=== PATIENT | female | born 1980 | race Native Hawaiian/Other Pacific Islander ===

== ENCOUNTER 2024-07-29 20:17 | Emergency (ER) | payer BC, SELFPAY ==
[2024-07-29 20:23] VITALS: BP 152/84; PULSE 82; RESP 20; TEMP 36.7; O2SAT 96; BMI 37.2
--- NOTE | 2024-07-29 20:33 | ED_ITS ---
HPI - General Adult General Chief complaint: Cough Stated complaint: Labored breathing, cough Time Seen by Provider: 07/29/24 20:23 History of Present Illness HPI narrative: This 44-year-old female comes in reporting 2 days of cough with feelings of some shortness of breath. She does not report any fevers or nasal congestion. She does not have sore throat. She does not report any body aches or pains. She states that she did have COVID about a month ago and these symptoms completely resolved. Related Data Previous Rx's ?Medication ?Instructions ?Recorded acetaminophen 300 mg-codeine 30 mg 1 tab PO Q6H PRN pain #15 tabs 07/29/24 tablet Allergies Allergy/AdvReac Type Severity Reaction Status Date / Time No Known Drug Allergies Allergy Verified 07/29/24 20:24 Review of Systems Status of ROS: Reports: 10 or more systems reviewed and unremarkable except as noted in History and below Narrative: Constitutional: No fevers, no weight gain or loss. Eyes: No discharge. No vision changes. HENT: No congestion, no sore throat, no ear pain. Cardiovascular: No chest pain, no palpitations. Respiratory: She reports cough with shortness of breath. Gastrointestinal: No abdominal pain, no vomiting, no diarrhea. Genitourinary: No dysuria, no hematuria. Musculoskeletal: Normal range of motion. Skin: No rashes, no pruritis. Neurological: No dizziness, weakness, sensory change, speech change. Endo/Heme/Allergies: No bruising or bleeding. No polydipsia. Pysch: no suicidality, no anxiety, no insomnia. All other systems reviewed and are negative. Exam Narrative: Exam Narrative: Constitutional: Well-developed, well-nourished, no acute distress. HEENT: Normocephalic, atraumatic. Neck: Normal range of motion. Nontender. Supple. Heart: Regular. No murmurs. Normal rate. Intact distal pulses. Lungs: Wheezes and rhonchi auscultated on the right lung. Abdomen: Normal bowel sounds. Nontender. No rebound tenderness. Genitalia: Deferred. Back: No midline tenderness. Normal range of motion. Extremities: Normal range of motion. No injury. Skin: Intact. No rash. Warm. No erythema or pallor. Neurologic: No altered sensation. No weakness. Alert and oriented. Psychiatric: No suicidality. No anxiety or depression. No insomnia. Nursing notes and vitals signs are reviewed. Const: Vital Signs, click to edit/add: Vital Signs - 24 hr 07/29/24 20:23 Temperature 98.0 F Pulse Rate [Right Pulse Oximeter] 82 Respiratory Rate 20 Blood Pressure [Ri ght Upper Arm] 152/84 H Pulse Oximetry 96 Oxygen Delivery Me thod Room Air Course Vital Signs Vital signs: Initial Vital Signs Temperature 98.0 F 07/29/24 20:23 Temperature Source Temporal Artery Scan 07/29/24 20:23 Pulse Rate 82 07/29/24 20:23 Respiratory Rate 20 07/29/24 20:23 Blood Pressure 152/84 H 07/29/24 20:23 Blood Pressure Mean 106 H 07/29/24 20:23 Blood Pressure Position Sitting 07/29/24 20:23 Pulse Oximetry 96 07/29/24 20:23 Oxygen Delivery Method Room Air 07/29/24 20:23 Vital Signs Temperature 98.0 F 07/29/24 20:23 Pulse Rate 82 07/29/24 20:23 Respiratory Rate 20 07/29/24 20:23 Blood Pressure 152/84 H 07/29/24 20:23 Pulse Oximetry 96 07/29/24 20:23 Oxygen Delivery Method Room Air 07/29/24 20:23 Temperature 98.0 F 07/29/24 20:23 Pulse Rate 82 07/29/24 20:23 Respiratory Rate 20 07/29/24 20:23 Blood Pressure 152/84 H 07/29/24 20:23 Pulse Oximetry 96 07/29/24 20:23 Oxygen Delivery Method Room Air 07/29/24 20:23 Medications Administered Medications: Generic Name Dose Route Start Last Admin Trade Name Freq PRN Reason Stop Dose Admin Dexamethasone 10 mg 07/29/24 20:33 07/29/24 20:41 Dexamethasone 10 Mg/Ml Inj PO 07/29/24 20:34 10 mg ONCE ONE Administration Medical Decision Making MDM Narrative Medical decision making narrative: This patient comes in with the persistent nonproductive cough and reports some shortness of breath. She actually is moving air quite well and has normal vital signs however there is some wheezes and rhonchi auscultated on the right side. She did receive an oral dose of dexamethasone 10 mg. This brought some improvement to her symptoms. Chest rate x-ray is also obtained and by my review there is no acute pulmonary findings. Radiology report is pending. The patient is okay to be discharged home and I did provide prescription for 6 tablets of Tylenol 3 here from the pharmacy as the [employer] machine is not functioning and tomorrow is a holiday. She received another [address] of prescriptions through her preferred pharmacy also. Discharge Plan Discharge Clinical Impression: Acute upper respiratory infection Patient Disposition: Home, Self-Care Condition: Stable Additional Instructions: Take medication as needed and indicated. Follow up with MD or return if worsening symptoms occur, especially if becoming more short of breath. Prescriptions: New acetaminophen-codeine 300-30 mg tablet 1 tab PO Q6H PRN (Reason: pain) Qty: 15 0RF Follow Up/Referrals: Provider,Not a Local [Primary Care Provider] - Stand Alone Forms: [employer] Info Instructions
--- NOTE | 2024-07-29 20:33 | CRLHL7_ITS ---
For Patients: As a result of the Cures Act, medical imaging exams and procedure reports are released immediately into your electronic medical record. You may view this report before your referring provider. If you have questions, please contact your health care provider. Indication: Cough Technique: Two views of the chest Comparison: None Findings/Impression: No acute cardiopulmonary process detected. Question nodule in the left lung versus overlapping bronchovascular structures measuring 7 millimeters, nonemergent outpatient CT recommended for further characterization. Dictated by Roberto Carlos Knott MD @ 07/29/2024 9:20:28 PM (Electronically Signed)
[2024-07-29] MEDS: dexAMETHasone 10 MG/ML inj PO (20:41)
[2024-07-29 21:36] VITALS: BP 135/74; PULSE 79; RESP 20; TEMP 36.7; O2SAT 96
[2024-07-29 21:37] VITALS: BP 135/74; PULSE 79; RESP 20; TEMP 36.7
== END 2024-07-29 21:39 | disposition home or self-care (01) ==
PROVIDERS: Emergency Provider Emergency Medicine Emergency Medical Services
DX: J06.9 Acute upper respiratory infection, unspecified (principal)
CPT/HCPCS: 71046; 99283; 99284; J1100

== ENCOUNTER 2024-11-09 19:57 | Emergency (ER) | payer BC, SELFPAY ==
[2024-11-09] VITALS (19 sets, daily range): BP systolic 139–181; BP diastolic 76–97; PULSE 49–62; RESP 13–29; O2SAT 95–100; BMI 38.6
--- OUTSIDE RECORDS SUMMARY | 2024-11-09 19:59 | XMS_ITS | Continuity of Care Document ---
Author Organization [facility] Address [address] [place] [address] Phone Care Team Providers Care Mobile Device Developer Name Role Phone Will MD DAO, Jong Unavailable Unavailabl e Advance Directives Directive Yes / No Effective Date File Name No Information Encounters Encounter Description Practice Location Reason(s) For Visit Diagnoses Date Provider Providers Copied on Encounter [facility], [address] [place] [address], [id number], [place] tel:[phone] [facility] No Information Will Jong. [address] [facility] [place], [place], [id number], [place]. tel:[phone] Family History Family Member Type Diagnosis Age At Onset No Information Payers Payer name Insurance type Covered democrat ID Authoriza tion(s) No Information Social History Type Description Quantity Date Captured Comments Alcohol Use Details Unknown Caffeine Use Details Unknown Tobacco Use Status No Information Smoking Status No Information Sex Female Chief Complaint And Reason For Visit No Information Reason For Referral Reason For Referral No Information Plan Of Treatment Date Type Action Status Goal Tobacco Use. Due on 023 due Goal Lipid panel. Due on 023 due Goal Review Allergy List. Due on due Goal Unhealthy drug use screening . Due on due Goal Medication Reconciliation. D ue on due Goal Hepatitis C screening. Due o n due Goal PHQ-9. Due on du e Goal Weight. Due on d ue Goal HPV. Due on due Goal Update Social History. Due o n due Goal Height. Due on d ue History Of Present Illness Encounter Date Complaint History Of Prese nt Illness No Information Functional Status Date Functional Assessmen t No Information Instructions Date Instruction Additional Infor mation No Information Assessments Type Assessment Date No Information Patient Care Teams Name Effective Dates (start - stop) Status Members No Information
--- OUTSIDE RECORDS SUMMARY | 2024-11-09 19:59 | XMS_ITS | Clinical Summary ---
Author Organization [facility] Address [address], [place] [address] Care Team Providers Care Lending Consultant Name Role Phone Self-Referral, Patient MD Primary Care Provider Source Comments You are receiving this document as you are listed as the primary care provider,follow-up provider, or the patient has been referred to you for consultation.This is in compliance with the Medicare and[facility] EHR Incentive Program,which states Providers who transition their patient to another setting of careor provider of care or refers their patient to another provider of care shouldprovide summary care record for each transition of care or referral. [facility] Allergies No known active allergies Medications ibuprofen (MOTRIN) 800 MG tablet Take 1 Tablet (800 mg) by mouth every 8 hours as needed for Pain. 30 Tablet 2 Active Additional Information Patient not taking.Reported on 11/08/2023 acetaminophen-c odeine (TYLENOL NO. 3) 300-30 MG tablet Take by mouth. 4 Active ALBUterol sulfate HFA 108 (90 Base) MCG/ACT inhaler Inhale 2 Puffs every 6 hours as needed. 1 Each 4 Active fluticasone propionate (FLONASE) 50 MCG/ACT nasal solution Place 1 [place] into both nostrils two times a day. 16 g 4 Active Active Problems Problem Noted Date Diagnosed Date Other specified spondylopathies, cervical region 08/13/2023 Social History Tobacco Use Types Packs/Day Years Used Date Smoking Tobacco: Never Passive Smoke Exposure: Never Smokeless Tobacco: Current Chew Tobacco Cessation:Ready to Q uit: Not Asked; Counseling Given: Not Answered Comments:4 times a day Comments No Sex and Gender Information Value Date Recorded Sex Assigned at Not on file Legal Sex Female 10:08 AM DOCUMENTATION SPEC Gender Identity Not on file Sexual Orientation Not on file Last Filed Vital Signs Vital Sign Reading Time Taken Comments Blood Pressure 132/66 07/31/2024 3:29 PM DOCUMENTATION SPEC Pulse 61 07/31/2024 3:29 PM DOCUMENTATION SPEC Temperature 36.7 C (98 F) 07/31/2024 3:29 PM DOCUMENTATION SPEC Respiratory Rate 16 07/31/2024 3:29 PM DOCUMENTATION SPEC Oxygen Saturation 99% 07/31/2024 3:29 PM DOCUMENTATION SPEC Inhaled Oxygen Concentration - - Weight 96.2 kg (212 lb) 11/22/2022 1:38 PM CDT Height 161.3 cm (5' 3.5) 11/22/2022 1:38 PM CDT Body Mass Index 36.97 11/22/2022 1:38 PM CDT Plan of Treatment Health Maintenance Due Date Last Done Comments Cervical Cancer Screening Due 1981 Hep C Screening (Preventive Services) 1981 Mammogram 1981 HIV Screening (Preventive Services) 1997 Adult Preventive Visit 1999 HepB (1) 2000 COVID-19 Vaccine (1 - 2023-2 5 season) 2024 Zoster/Shingles (1 of 2) 2031 DTaP/Tdap/Td (2 - Tdap) 09/04/2032 09/04/2022 Influenza Completed 05/28/2024, 04/25/2023, 09/04/2022 HPV Vaccine Aged Out No longer eligi ble based on patient's age to complete this topic HepA Aged Out No longer eligi ble based on patient's age to complete this topic Hib Aged Out No longer eligi ble based on patient's age to complete this topic IPV (Polio) Aged Out No longer eligi ble based on patient's age to complete this topic MCV4 Aged Out No longer eligi ble based on patient's age to complete this topic Meningococcal B Aged Out No longer el igible based on patient's age to complete this topic Pneumococcal Aged Out No longer eligi ble based on patient's age to complete this topic Insurance [facility] [employer] Member Subscriber Plan / Payer ( fective 2021-Present) Name:Neela Quintero Relation to Subscriber:Spouse Name:CONSUELO QUINTERO JR Jimmy Date of :1983 Payer ID:[id number] (NAIC) Group ID:[id number] Type:Commercial Address: [address] [place] [phone] [facility] [employer] Member Subscriber Plan / Payer ( fective 2021-Present) Name:Neela Quintero Relation to Subscriber:Spouse Name:CONSUELO QUINTERO JR Jimmy Date of :1983 Payer ID:[id number] (NAIC) Group ID:[id number] Type:Commercial Address: [address] [place] [phone] Care Teams Lending Consultant Relationship Specialty Start Date End Date Self-Referral, Patient, [place] [address] PCP - General 08/29/22
--- OUTSIDE RECORDS SUMMARY | 2024-11-09 19:59 | XMS_ITS | Clinical Summary ---
Author Organization [facility] Address [address] [place] [address] Care Team Providers Care Supervisor Contact Lens Name Role Phone Anushka Ruvalcaba MD Primary Care Provider Allergies No known active allergies Medications No known medications Active Problems Problem Noted Date Diagnosed Date Other specified spondylopathies, cervical region 08/13/2023 Pap smear for cervical cancer screening 09/20/19 Overview (09/20/2022): 08/2022 NIL/HPV negative. Plan: Pap/HPV due 08/2027 Immunizations Immunization Administration Dates Next Due Hep B (Hepatitis B (Adult) Recombinant Adjuvante d) 06/27/2024,05/28/2024 Influenza, IIV4 04/25/2023,09/04/2022 Influenza, RIV3 (Age =>18 Years) 05/28/2024 Tdap 09/04/2022 Family History Medical History Relation Name Comments Diabetes Father Hyperlipidemia Father Diabetes Mother Hyperlipidemia Mother Hypertension Mother Other Mother heart/aorta con cern but unclear details Heart murmur Sister Cancer-breast No Family History Cancer-colon No Family History Relation Name Status Comments Father Mother Sister Social History Tobacco Use Types Packs/Day Years Used Date Smoking Tobacco: Never Smokeless Tobacco: Current Chew Tobacco Cessation:Ready to Q uit: Not Asked; Counseling Given: Not Answered Alcohol Use Standard Drinks/Week Comments Not Currently 0 (1 standard drink = 0.6 oz pur e alcohol) PHQ-2 Answer Date Recorded PHQ-2 TOTAL SCORE 0 08/13/2023 Social Connections Answer Date Recorded Do you often feel lonely or isolated from those around you? 0 08/11/2023 Financial Resource Strain Answer Date R ecorded Difficulty of Paying Living Expenses 3 08/11/2023 Difficulty of Paying Living Expenses Not on file 08/11/2023 Food Insecurity Answer Date Recorded Do you worry your food will run out before you are able to buy more? 1 08/11/2023 Transportation Needs Answer Date Record ed Does lack of transportation keep you from medica l appointments? 1 08/11/2023 Does lack of transportation keep you from work, meetings or getting things that you need? 1 08/11/2023 Housing Stability Answer Date Recorded What is your housing situation today? 1 08/11/2023 Interpersonal Safety Answer Date Record ed Are you being hit, kicked, p ushed or yelled at (see row info)? No 10/07/2023 Interpersonal Safety Abuse 12 - 18 Not on file 10/07/2023 Interpersonal Safety Ambulatory Vulnerability No t on file 10/07/2023 Utilities Answer Date Recorded Do you have trouble paying f or utilities (for example, heat, electricity, water, phone)? 1 08/11/2023 Comments No Sex and Gender Information Value Date Recorded Sex Assigned at Female 10/19/2022 11:14 AM CDT Legal Sex Female 9:24 AM CDT Gender Identity Female 10/19/2022 11:14 AM CDT Sexual Orientation Straight 10/19/2022 11 :14 AM CDT Obstetrics History Last Filed Vital Signs Vital Sign Reading Time Taken Comments Blood Pressure 128/78 07/08/2024 8:09 AM CHORE WORKER Pulse 62 07/08/2024 8:09 AM CHORE WORKER Temperature 36.1 C (97 F) 01/22/2024 10:13 AM CDT Respiratory Rate 15 06/04/2024 10:06 AM CDT Oxygen Saturation 98% 06/11/2024 2:47 PM CHORE WORKER Inhaled Oxygen Concentration - - Weight 101.6 kg (224 lb) 07/08/2024 8:09 AM CHORE WORKER Height 160 cm (5' 2.99) 07/08/2024 8:09 AM CHORE WORKER Body Mass Index 39.69 07/08/2024 8:09 AM CHORE WORKER Plan of Treatment Health Maintenance Due Date Last Done Comments COVID-19 vaccine series ( season) 2024 Depression screening for age 12+ 08/13/2024 08/13/2023, 09/04/2022 BMI (ht and wt on same day) for age 18+ 07/08/2025 07/08/2024, 06/11/2024, 01/15/2024, Additional history exists Pap test for age 21-65 09/04/2027 09/04/2022, 2022 Tetanus booster 09/04/2032 09/04/2022 HIV for age 15-65 Completed 09/04/2022 Hepatitis C screening for age 18-79 Completed 09/04/2022 Tdap Completed 09/04/2022 Influenza Vaccine Completed 05/28/2024, , 09/04/2022 Pneumococcal series for age 6-49 Aged Out No longer eligible based on patient's age to complete this topic Medical Devices Implanted Type Area Financial Planning Adviser Device Identifier Shelf Expiration Date Model / Serial / Lot Suture Loc Meniscal Root Repair Kit Implanted:Qty: 1 on 01/22/2024 by Brianna Guerra MD at [facility] [facility]: Knee H [employer] 12/03/2028 [id number] / / [id number] Procedures Procedure Name Priority Date/Time Associated Diagnosis Comments HPV HIGH RISK Routine 09/04/2022 11:38 AM CHORE WORKER Pap smear for cervical cancer screening LC HIV-1/O/2, 4TH GENERATION Routine 09/04/2022 11:19 AM CHORE WORKER Screening for HIV (human immunodeficiency virus) LC HCV ANTIBODY RFX TO QUANT PCR Routine 09/04/2022 11:19 AM CHORE WORKER Need for hepatitis C screening test from Last 3 Months or Most Recently Relevant to Health Maintenance Results * HPV HIGH RISK (09/04/2022 11:38 AM CHORE WORKER) TYPE 16 Negative Negative 09/07/2022 1:51 PM CHORE WORKER [facility] TYPE 18 Negative Negative 09/07/2022 1:51 PM CHORE WORKER [facility] OTHER HIGH RISK TYPES Negative Negative 09/07/2022 1:51 PM CHORE WORKER [facility] Other (Cervical) Non-Blood / Unknown 09/04/2022 11:38 AM CHORE WORKER 09/05/2022 4:19 PM CHORE WORKER Narrative [facility] - 09/07/2022 1:51 PM CHORE WORKER HPV types 16, 18, 31, 33, 35, 39, 45, 51, 52, 56, 58, 59, 66 and 68 DNA were undetectable or below the pre-set threshold. Methodology: Sherine Jose R 4800 HPV Test us Anushka Ruvalcaba MD MICROBIOLOGY Final Result [facility] [address] [place] [address], [place] * LC HCV ANTIBODY RFX TO QUANT PCR (09/04/2022 11:19 AM CHORE WORKER) Pathologist [facility] HCV Ab <0.1 0.0 - 0.9 s/co ratio 09/06/2022 10:06 PM CHORE WORKER [facility] ([facility]) Blood BLOOD SPECIMEN / Unknown Venipuncture / Unknown 09/04/2022 11:19 AM CHORE WORKER 09/04/2022 11:26 AM CHORE WORKER Narrative [facility] - 09/06/2022 10:06 PM CHORE WORKER Performed at: [address] [place] [id number] Internal Audit Director: Dimitris Beckford MD, Phone: [phone] us Anushka Ruvalcaba MD LABORATORY Final Result [facility] ([facility]) [address] [place] [address], [place] * LC HIV-1/O/2, 4TH GENERATION (09/04/2022 11:19 AM CHORE WORKER) Pathologist [facility] HIV Scr 4th Gen Non Reactive Non Reactive 09/06/2022 10:07 PM CHORE WORKER [facility] Comment: HIV Negative HIV-1/HIV-2 antibodies and HIV-1 p24 antigen were NOT detected. There is no laboratory evidence of HIV infection. Blood BLOOD SPECIMEN / Unknown Venipuncture / Unknown 09/04/2022 11:19 AM CHORE WORKER 09/04/2022 11:26 AM CHORE WORKER [facility]ative [facility] - 09/06/2022 10:07 PM CHORE WORKER Performed at: [address] [place] [address] [employer] [place], [place] [id number] Internal Audit Director: Dimitris Beckford MD, Phone: [phone] Anushka Ruvalcaba MD LABORATORY Final Result [facility] [place] [address], from Last 3 Months or Most Recently Relevant to Health Maintenance Insurance [facility] Advance Directives * Full Code (Latest Code Status on File) Date Activated Date Inactivated Comments 01/22/2024 5:21 AM 01/22/2024 2:36 PM Question Answer Comments Code Status Discussion: Reviewed Preferences Care Teams Supervisor Contact Lens Relationship Specialty Start Date End Date Anushka Ruvalcaba MD [address] [facility] [address] [place] [address] PCP - General Family Practice 09/04/22
--- NOTE | 2024-11-09 20:30 | CRLHL7_ITS ---
For Patients: As a result of the Century Cures Act, medical imaging exams and procedure reports are released immediately into your electronic medical record. You may view this report before your referring provider. If you have questions, please contact your health care provider. INDICATION: Chest pain. TECHNIQUE: Chest 2 views. COMPARISON: 07/29/2024. FINDINGS: Cardiovascular and mediastinum: Heart size and vasculature are normal in caliber and appearance. Lungs and pleural spaces: Lungs are clear. No sign of infiltrate or mass. No sign of pleural effusion. No pneumothorax. Bones and soft tissues: No significant findings. IMPRESSION: No acute cardiopulmonary abnormality. Dictated by Chato Kemp MD @ 11/09/2024 9:01:45 PM (Electronically Signed)
[2024-11-09 20:40] LABS: Basophils Absolute Auto 0.03 K/uL (0.00-0.30); Basophils Percent Auto 0.3 % (0.0-3.0); Eosinophils Absolute Auto 0.23 K/uL (0.00-0.50); Eosinophils Percent Auto 2.3 % (0.0-7.0); Hemoglobin* 12.5 gm/dL (12.0-16.0); Immature Granulocytes Abs Auto 0.02 K/uL (0.00-0.30); Immature Granulocytes Pct Auto 0.2 %; Lymphocytes Absolute Auto 2.18 K/uL (0.90-2.90); Lymphocytes Percent Auto 22.2 % (20-44); Mean Corpuscular HGB Conc 33 gm/dL (32-36); Mean Corpuscular Hemoglobin 28 pg (26-34); Mean Corpuscular Volume 85 fL (80-100); Monocytes Percent Auto 6.5 % (0.0-11.0); Neutrophils Percent Auto 68.5 % (42.0-72.0); Platelet Count* 307 K/uL (140-440); RDW Coefficient of Variation % 13.7 % (11.5-15.5); Red Blood Count 4.45 m/uL (4.00-5.20)
--- OUTSIDE RECORDS SUMMARY | 2024-11-09 20:41 | XMS_ITS | Continuity of Care Document ---
Author Organization [facility] Address [address] [place] [address] Phone Care Team Providers Care Machine Precision Etcher Name Role Phone Will MD DAO, Jong Unavailable Unavailabl e Advance Directives Directive Yes / No Effective Date File Name No Information Encounters Encounter Description Practice Location Reason(s) For Visit Diagnoses Date Provider Providers Copied on Encounter [facility], [address] [place] [address], [id number], [place] tel:[phone] [facility] No Information Will Jong. [address] [facility] [place], [place], [id number], [place]. tel:[phone] Family History Family Member Type Diagnosis Age At Onset No Information Payers Payer name Insurance type Covered alliance party ID Authoriza tion(s) No Information Social History [...]
--- OUTSIDE RECORDS SUMMARY | 2024-11-09 20:41 | XMS_ITS | Clinical Summary ---
Author Organization [employer] Address [address] [place] [id number] Care Team Providers Care Clinical Scientist Name Role Phone Anushka Ruvalcaba MD Primary [...] Comments Blood Pressure 128/78 07/08/2024 8:09 AM CASUALTY INSURANCE CLAIM ADJUSTER Pulse 62 07/08/2024 8:09 AM CASUALTY INSURANCE CLAIM ADJUSTER Temperature 36.1 C (97 F) 01/22/2024 10:13 AM CDT Respiratory Rate 15 06/04/2024 10:06 AM CDT Oxygen Saturation 98% 06/11/2024 2:47 PM CASUALTY INSURANCE CLAIM ADJUSTER Inhaled Oxygen Concentration - - Weight 101.6 kg (224 lb) 07/08/2024 8:09 AM CASUALTY INSURANCE CLAIM ADJUSTER Height 160 cm (5' 2.99) 07/08/2024 8:09 AM CASUALTY INSURANCE CLAIM ADJUSTER Body Mass Index 39.69 07/08/2024 8:09 AM CASUALTY INSURANCE CLAIM ADJUSTER Plan of Treatment Health Maintenance Due Date [...] this topic Medical Devices Implanted Type Area Delivery Truck Driver Heavy Device Identifier Shelf Expiration Date Model / Serial / Lot Suture Loc Meniscal Root Repair Kit Implanted:Qty: 1 on 01/22/2024 by Brianna Guerra MD at [facility], [facility]. Left: Knee H [employer] 12/03/2028 [id number] / / [id number] Procedures Procedure Name Priority Date/Time Associated Diagnosis Comments HPV HIGH RISK Routine 09/04/2022 11:38 AM CASUALTY INSURANCE CLAIM ADJUSTER Pap smear for cervical cancer screening LC HIV-1/O/2, 4TH GENERATION Routine 09/04/2022 11:19 AM CASUALTY INSURANCE CLAIM ADJUSTER Screening for HIV (human immunodeficiency virus) LC HCV ANTIBODY RFX TO QUANT PCR Routine 09/04/2022 11:19 AM CASUALTY INSURANCE CLAIM ADJUSTER Need for hepatitis C screening test from Last 3 Months or Most Recently Relevant to Health Maintenance Results * HPV HIGH RISK (09/04/2022 11:38 AM CASUALTY INSURANCE CLAIM ADJUSTER) TYPE 16 Negative Negative 09/07/2022 1:51 PM CASUALTY INSURANCE CLAIM ADJUSTER [facility] TYPE 18 Negative Negative 09/07/2022 1:51 PM CASUALTY INSURANCE CLAIM ADJUSTER [facility] OTHER HIGH RISK TYPES Negative Negative 09/07/2022 1:51 PM CASUALTY INSURANCE CLAIM ADJUSTER [facility] Other (Cervical) Non-Blood / Unknown 09/04/2022 11:38 AM CASUALTY INSURANCE CLAIM ADJUSTER 09/05/2022 4:19 PM CASUALTY INSURANCE CLAIM ADJUSTER Narrative [facility] - 09/07/2022 1:51 PM CASUALTY INSURANCE CLAIM ADJUSTER HPV types 16, 18, 31, 33, 35, 39, 45, 51, 52, 56, 58, 59, 66 and 68 DNA were undetectable or below the pre-set threshold. Methodology: Sherine Jose R 4800 HPV Test us Anushka Ruvalcaba MD MICROBIOLOGY Final Result [facility] [address] [place] [address], [place] * LC HCV ANTIBODY RFX TO QUANT PCR (09/04/2022 11:19 AM CASUALTY INSURANCE CLAIM ADJUSTER) Pathologist [facility] HCV Ab <0.1 0.0 - 0.9 s/co ratio 09/06/2022 10:06 PM CASUALTY INSURANCE CLAIM ADJUSTER [facility] ([facility]) Blood BLOOD SPECIMEN / Unknown Venipuncture / Unknown 09/04/2022 11:19 AM CASUALTY INSURANCE CLAIM ADJUSTER 09/04/2022 11:26 AM CASUALTY INSURANCE CLAIM ADJUSTER Narrative [facility] ([facility]) - 09/06/2022 10:06 PM CASUALTY INSURANCE CLAIM ADJUSTER Performed at: [address] [place] [id number] Restaurant Worker: Dimitris Beckford MD, Phone: [phone] us Anushka Ruvalcaba MD LABORATORY Final Result [facility] ([facility]) [address] [place] [address], [place] * LC HIV-1/O/2, 4TH GENERATION (09/04/2022 11:19 AM CASUALTY INSURANCE CLAIM ADJUSTER) Pathologist [facility] HIV Scr 4th Gen Non Reactive Non Reactive 09/06/2022 10:07 PM CASUALTY INSURANCE CLAIM ADJUSTER [facility] Comment: HIV Negative HIV-1/HIV-2 antibodies and HIV-1 p24 antigen were NOT detected. There is no laboratory evidence of HIV infection. Blood BLOOD SPECIMEN / Unknown Venipuncture / Unknown 09/04/2022 11:19 AM CASUALTY INSURANCE CLAIM ADJUSTER 09/04/2022 11:26 AM CASUALTY INSURANCE CLAIM ADJUSTER N[facility]ative [facility] - 09/06/2022 10:07 PM CASUALTY INSURANCE CLAIM ADJUSTER Performed at: [address] [place] [address] [employer] [place], [place] [id number] Restaurant Worker: Dimitris Beckford MD, Phone: [phone] Anushka Ruvalcaba MD LABORATORY Final Result [facility] [place] [address], from Last 3 Months or Most Recently Relevant to Health Maintenance Insurance [facility] Advance Directives * Full Code (Latest Code Status on File) Date Activated Date Inactivated Comments 01/22/2024 5:21 AM 01/22/2024 2:36 PM Question Answer Comments Code Status Discussion: Reviewed Preferences Care Teams Clinical Scientist Relationship Specialty Start Date End Date Anushka Ruvalcaba MD [address] [facility] [address] [address] PCP - General Family Practice 09/04/22
--- OUTSIDE RECORDS SUMMARY | 2024-11-09 20:41 | XMS_ITS | Clinical Summary ---
Author Organization [facility] Address [address], [place] [address] Care Team Providers Care Filling Machine Tender Name Role Phone Self-Referral, Patient MD Primary Care Provider Source Comments You are receiving this document as you are listed as the primary care provider,follow-up provider, or the patient has been referred to you for consultation.This is in compliance with the Medicare and[facility] EHR Incentive Program,which states Providers who transition their patient to another setting of careor provider of care or refers their patient to another provider of care shouldprovide summary care record for each transition of care or referral. [facility] Allergies No known active allergies Medications ibuprofen [...] (FLONASE) 50 MCG/ACT nasal solution Place 1 [place] into both nostrils two times a day. [...] on file Legal Sex Female 10:08 AM FORMULA MAKER Gender Identity Not on file Sexual Orientation Not on file Last Filed Vital Signs Vital Sign Reading Time Taken Comments Blood Pressure 132/66 07/31/2024 3:29 PM FORMULA MAKER Pulse 61 07/31/2024 3:29 PM FORMULA MAKER Temperature 36.7 C (98 F) 07/31/2024 3:29 PM FORMULA MAKER Respiratory Rate 16 07/31/2024 3:29 PM FORMULA MAKER Oxygen Saturation 99% 07/31/2024 3:29 PM FORMULA MAKER Inhaled Oxygen Concentration - - Weight 96.2 [...] age to complete this topic Insurance [facility] Member Subscriber Plan / Payer ( fective 2021-Present) Name:Neela Quintero Relation to Subscriber:Spouse Name:CONSUELO QUINTERO JR Jimmy Date of :1983 Payer ID:[id number] (NAIC) Group ID:[id number] Type:Commercial Address: [address] [place] [phone] [facility] Member Subscriber Plan / Payer ( fective 2021-Present) Name:Neela Quintero Relation to Subscriber:Spouse Name:CONSUELO QUINTERO JR Jimmy Date of :1983 Payer ID:[id number] (NAIC) Group ID:[id number] Type:Commercial Address: [address] [place] [phone] Care Teams Filling Machine Tender Relationship Specialty Start Date End Date Self-Referral, Patient[place] [address] PCP - General 08/29/22
[2024-11-09] MEDS: 0.9 % SODIUM CHLORIDE 1000 ml 1,000 ML IV (20:47)
[2024-11-09 20:48] LABS: Slide Review Reflex No
[2024-11-09] MEDS: ASPIRIN 81 MG TAB.CHEW 324 MG PO (20:48)
[2024-11-09] MEDS: LORazepam 2 MG/ML inj 0.5 MG IVP (20:49)
[2024-11-09 20:54] LABS: Albumin* 4.6 g/dL (3.3-5.0); Chloride* 100 mmol/L (96-114); Potassium* 3.1 mmol/L (3.6-5.1); Sodium* 136 mmol/L (135-149)
[2024-11-09 20:56] LABS: Blood Urea Nitrogen* 9 mg/dL (5-24); Creatinine* 0.8 mg/dL (0.5-1.5); Est. Creatinine Clearance* 71.71; Estimated Glomerular Filt Rate 94 ml/min; INR 0.99 (0.91-1.10); Prothrombin Time 13.9 Seconds
[2024-11-09 20:57] LABS: Alanine Aminotransferase* 24 U/L (4-35); Alkaline Phosphatase* 43 U/L (40-150); Anion Gap 7 mEq/L (7-15); Aspartate Amino Transferase* 27 U/L (12-35); Bilirubin Direct* 0.2 mg/dL (0.0-0.5); Bilirubin Total* 0.7 mg/dL (0.1-1.5); Carbon Dioxide* 29 mmol/L (20-32); Glucose* 159 mg/dL (60-115); Partial Thromboplastin Time* 32 Seconds (23-33); Total Protein* 7.9 g/dL (6.0-8.3)
[2024-11-09] MEDS: POTASSIUM CHLORIDE 10 MEQ CAPSULE ER 40 MEQ PO (22:06)
[2024-11-09] MEDS: ONDANSETRON ODT 4 MG TAB PO (22:10)
--- NOTE | 2024-11-09 22:10 | ED_ITS ---
HPI - Chest Pain General Date Seen: 11/09/24 Chief Complaint: Chest Pain Stated Complaint: Chest pain, L arm tingling, high BP Time Seen by Provider: 11/09/24 20:00 Source: patient and family Mode of arrival: ambulatory Limitations: no limitations History of Present Illness HPI narrative: Patient is a delightful lady who presents here with chest pain that started after dinner she describes on the left side of her chest with some radiation to her left shoulder. It did not radiate to her back or up into her neck, was not associated with diaphoresis, she denies any nausea but then later on here did become a little bit nauseous. She has no previous history of any chest pain, she is a nonsmoker nonuser of drugs or alcohol. And there is no family history of premature coronary disease her mother when she was allergy did have a history of an enlarged heart, which I suspect was a cardiomyopathy. And there is a history and her sister of a PFO. She presents here with her , she has no exertional component to this, she denies any abdominal discomfort fevers chills or sweats cough leg swelling recent travel history or other complaints. He came on when she was sitting down. complaint: chest pain Onset (ago): hour(s) Timing of current episode: constant Prior episodes: No Onset: during rest Pain location: substernal and left chest Pain radiation: left shoulder Severity: moderate Quality: tightness and heaviness Relieving factors: nothing Exacerbating factors: nothing Associated symptoms: nausea Treatment prior to arrival: none Risk Factors Coronary artery disease risk factors: none Thoracic aortic dissection risk factors: none Related Data On Oral Contraceptives: No Previous Rx's ?Medication ?Instructions ?Recorded acetaminophen 300 mg-codeine 30 mg 1 tab PO Q6H PRN pain #15 tabs 07/29/24 tablet Allergies Allergy/AdvReac Type Severity Reaction Status Date / Time No Known Drug Allergies Allergy Verified 11/09/24 20:06 Review of Systems Status of ROS Reports: 10 or more systems reviewed and unremarkable except as noted in History and below [facility] PFS Medical History No significant past medical history Surgical History History of tubal ligation ?Z98.51 - Tubal ligation status (ICD-10) History of laparoscopic cholecystectomy ?Z90.49 - Acquired absence of other specified parts of digestive tract (ICD- 10) History of knee surgery ?Z98.890 - Other specified postprocedural states (ICD-10) Social History Smoking Status: Never smoker Second hand tobacco smoke exposure: No How often do you have a drink containing alcohol: never How often do you have six or more drinks on one occasion: Never AUDIT-C Alcohol total score: 0 Non-prescribed substance use: denies use Exam Narrative Exam Narrative: On examination here she is in no apparent distress she is pleasant and alert. Examination of her chest reveals no tenderness to palpation, pupils equal round reactive to light there is no scleral icterus redness TMs are normal oropharynx normal there is no adenopathy anterior posterior chains her chest is good air entry bilaterally no wheezing crackles noted heart sounds are normal abdomen is soft and obese there is no guarding no organomegaly negative Fuentes sign, and bowel sounds are normal she moves all extremities independently and well. Skin reveals no petechiae rashes and she is neurologically stable. Const Vital Signs, click to edit/add: Vital Signs - 24 hr 11/09/24 20:04 11/09/24 20:12 11/09/24 20:15 Pulse Rate 54 L 56 L Pulse Rate [Right Pulse Oximeter] 58 L Respiratory Rate 16 15 Blood Pressure Blood Pressure [Right Upper Arm] 181/97 H Pulse Oximetry 98 100 100 Oxygen Delivery Method Room Air 11/09/24 20:17 11/09/24 20:18 11/09/24 20:30 Pulse Rate 58 L 57 L 56 L Pulse Rate [Right Pulse Oximeter] Respiratory Rate 18 13 Blood Pressure 173/97 H Blood Pressure [Right Upper Arm] Pulse Oximetry 95 96 99 Oxygen Delivery Method 11/09/24 20:32 11/09/24 20:45 11/09/24 20:48 Pulse Rate 58 L 55 L 57 L Pulse Rate [Right Pulse Oximeter] Respiratory Rate 21 22 19 Blood Pressure 161/96 H 148/89 H Blood Pressure [Right Upper Arm] Pulse Oximetry 96 98 96 Oxygen Delivery Method 11/09/24 21:00 11/09/24 21:02 Pulse Rate 54 L 55 L Pulse Rate [Right Pulse Oximeter] Respiratory Rate 17 23 Blood Pressure 164/96 H Blood Pressure [Right Upper Arm] Pulse Oximetry 100 100 Oxygen Delivery Method Documenting provider has reviewed patient's vital signs: yes Course Vital Signs Vital signs: Initial Vital Signs Pulse Rate 58 L 11/09/24 20:04 Pulse Rhythm Regular 11/09/24 20:04 Pulse Strength 3+ Normal 11/09/24 20:04 Respiratory Rate 16 11/09/24 20:04 Blood Pressure 181/97 H 11/09/24 20:04 Blood Pressure Mean 125 H 11/09/24 20:04 Blood Pressure Position Supine 11/09/24 20:04 Pulse Oximetry 98 11/09/24 20:04 Oxygen Delivery Method Room Air 11/09/24 20:04 Vital Signs Pulse Rate 58 L 11/09/24 20:04 Respiratory Rate 16 11/09/24 20:04 Blood Pressure 181/97 H 11/09/24 20:04 Pulse Oximetry 98 11/09/24 20:04 Oxygen Delivery Method Room Air 11/09/24 20:04 Pulse Rate 55 L 11/09/24 21:02 Respiratory Rate 23 11/09/24 21:02 Blood Pressure 164/96 H 11/09/24 21:02 Pulse Oximetry 100 11/09/24 21:02 Oxygen Delivery Method Room Air 11/09/24 20:04 Medications Administered Medications: Discontinued Medications Generic Name Dose Route Start Last Admin Trade Name Freq PRN Reason Stop Dose Admin Aspirin 324 mg 11/09/24 20:31 11/09/24 20:48 Aspirin 81 Mg Tab.Chew PO 11/09/24 20:32 324 mg ONCE ONE Administration Sodium Chloride 1,000 mls @ 1,000 mls/hr 11/09/24 20:30 11/09/24 20:47 0.9 % Sodium Chloride 1000 Ml IV 11/09/24 21:29 1,000 mls/hr .Q1H KUSHAL Administration Lorazepam 0.5 mg 11/09/24 20:31 11/09/24 20:49 Lorazepam 2 Mg/Ml Inj IVP 11/09/24 20:32 0.5 mg ONCE ONE Administration Ondansetron HCl 4 mg 11/09/24 22:08 11/09/24 22:10 Ondansetron Odt 4 Mg Tab PO 11/09/24 22:09 4 mg ONCE ONE Administration Potassium Chloride 40 meq 11/09/24 21:42 11/09/24 22:06 Potassium Chloride 10 Meq Capsule Er PO 11/09/24 21:43 40 meq ONCE ONE Administration MDM - Chest Pain MDM Narrative Medical decision making narrative: During the evaluation of this patient I considered multiple differential diagnosis is. The life-threatening differential diagnosis include coronary disease/MO, pulmonary embolism, pneumothorax, pneumonia, and aortic dissection. Other differential diagnosis included but were not limited to pericarditis, myocarditis, chest wall pain, GERD, esophageal rupture, rib fracture contusion, pleurisy, as well as other etiologies. Medical Records Data Attestation: I reviewed the patient's medical records. Lab Data Attestation: I reviewed the patient's lab results. Lab results narrative: Mild hypokalemia is noted. Labs: Lab Results 11/09/24 11/09/24 11/09/24 Range/Units 20:08 20:12 20:30 WBC 9.80 (4.50-11.00) K/uL RBC 4.45 (4.00-5.20) m/uL Hgb 12.5 (12.0-16.0) gm/dL Hct 38.0 (33.0-51.0) % MCV 85 (80-100) fL MCH 28 (26-34) pg MCHC 33 (32-36) gm/dL RDW Coeff of Ezra 13.7 (11.5-15.5) % Plt Count 307 (140-440) K/uL Neut % (Auto) 68.5 (42.0-72.0) % Lymph % (Auto) 22.2 (20-44) % Finney % (Auto) 6.5 (0.0-11.0) % Eos % (Auto) 2.3 (0.0-7.0) % Baso % (Auto) 0.3 (0.0-3.0) % Neut # (Auto) 6.70 (1.7-7.0) K/uL Lymph # (Auto) 2.18 (0.90-2.90) K/uL Finney # (Auto) 0.60 (0.00-0.90) K/UL Eos # (Auto) 0.23 (0.00-0.50) K/uL Baso # (Auto) 0.03 (0.00-0.30) K/uL Abs Immat Gran (auto) 0.02 (0.00-0.30) K/uL Imm/Tot Granulo (auto) 0.2 % INR 0.99 (0.91-1.10) APTT 32 (23-33) Seconds D-Dimer Quant (PE/DVT) 0.10 (0.00-0.50) ug/ml Sodium 136 (135-149) mmol/L Potassium 3.1 L (3.6-5.1) mmol/L Chloride 100 (96-114) mmol/L Carbon Dioxide 29 (20-32) mmol/L Anion Gap 7 (7-15) mEq/L BUN 9 (5-24) mg/dL Creatinine 0.8 (0.5-1.5) mg/dL Estimated Creat Clear 71.71 Estimated GFR 94 ml/min Glucose 159 H (60-115) mg/dL Calcium 9.0 (8.4-10.6) mg/dL Total Bilirubin 0.7 (0.1-1.5) mg/dL Direct Bilirubin 0.2 (0.0-0.5) mg/dL AST 27 (12-35) U/L ALT 24 (4-35) U/L Alkaline Phosphatase 43 (40-150) U/L Total Protein 7.9 (6.0-8.3) g/dL Albumin 4.6 (3.3-5.0) g/dL Ur Drug Screen Comment POC Troponin I 0.00 L 0.00 L (0.01-0.04) ng/ml 11/09/24 Range/Units 21:23 WBC (4.50-11.00) K/uL RBC (4.00-5.20) m/uL Hgb (12.0-16.0) gm/dL Hct (33.0-51.0) % MCV (80-100) fL MCH (26-34) pg MCHC (32-36) gm/dL RDW Coeff of Ezra (11.5-15.5) % Plt Count (140-440) K/uL Neut % (Auto) (42.0-72.0) % Lymph % (Auto) (20-44) % Finney % (Auto) (0.0-11.0) % Eos % (Auto) (0.0-7.0) % Baso % (Auto) (0.0-3.0) % Neut # (Auto) (1.7-7.0) K/uL Lymph # (Auto) (0.90-2.90) K/uL Finney # (Auto) (0.00-0.90) K/UL Eos # (Auto) (0.00-0.50) K/uL Baso # (Auto) (0.00-0.30) K/uL Abs Immat Gran (auto) (0.00-0.30) K/uL Imm/Tot Granulo (auto) % INR (0.91-1.10) APTT (23-33) Seconds D-Dimer Quant (PE/DVT) (0.00-0.50) ug/ml Sodium (135-149) mmol/L Potassium (3.6-5.1) mmol/L Chloride (96-114) mmol/L Carbon Dioxide (20-32) mmol/L Anion Gap (7-15) mEq/L BUN (5-24) mg/dL Creatinine (0.5-1.5) mg/dL Estimated Creat Clear Estimated GFR ml/min Glucose (60-115) mg/dL Calcium (8.4-10.6) mg/dL Total Bilirubin (0.1-1.5) mg/dL Direct Bilirubin (0.0-0.5) mg/dL AST (12-35) U/L ALT (4-35) U/L Alkaline Phosphatase (40-150) U/L Total Protein (6.0-8.3) g/dL Albumin (3.3-5.0) g/dL Ur Drug Screen Comment See Note POC Troponin I (0.01-0.04) ng/ml Imaging Data Chest x-ray: Attestation: I have reviewed the pertinent imaging results. My impression: Negative chest x-ray Radiologist's impression: [place] [address] Diagnostic Imaging Report Patient: Neela Miranda MR#: [id number] : 1980 Acct:[id number] Loc: ED Service Date: 11/09/[address]: Ordering Physician: Isai Osborne M.D. Date of Service: 11/09/24 Procedure(s): XR chest 2V Accession Number(s): [id number] cc: Provider,Not a Local; Isai Osborne M.D.~ For Patients: As a result of the Cures Act, medical imaging exams and procedure reports are released immediately into your electronic medical record. You may view this report before your referring provider. If you have questions, please contact your health care provider. INDICATION: Chest pain. TECHNIQUE: Chest 2 views. COMPARISON: 07/29/2024. FINDINGS: Cardiovascular and mediastinum: Heart size and vasculature are normal in caliber and appearance. Lungs and pleural spaces: Lungs are clear. No sign of infiltrate or mass. No sign of pleural effusion. No pneumothorax. Bones and soft tissues: No significant findings. IMPRESSION: No acute cardiopulmonary abnormality. Dictated by Chato Kemp MD @ 11/09/2024 9:01:45 PM (Electronically Signed) ECG Data Attestation: I personally reviewed and interpreted this ECG as follows: ECG interpretation date: 11/09/24 Prior ECG tracings: not available for review Interpretation: EKGs done 2 x 2, this shows mild sinus bradycardia with a rate of 51 and 57, no acute ST wave changes are noted. Discharge Plan Discharge Clinical Impression: Chest pain, Acute hypokalemia Patient Disposition: Home w/ Parent or Adult Condition: Stable Instructions: Chest Pain (DC) Additional Instructions: All your tests are very reassuring for both your heart and also for your lungs. You think that this may be related to somewhere in the GI tract and recommend follow-up this week with your doctor they may actually recommend you do a stress test which would not be unreasonable given what is going on with you I do believe that some of this is anxiety. Return here if increasing chest pain shortness of breath or other symptoms. For your lower potassium I do recommend a lots of potassium rich foods such as bananas and kiwis, consideration of potassium supplementation if your repeat potassium is low with your primary care doctor this week. Activity Level: Light activity Discharge Diet: Regular Prescriptions: No Action acetaminophen-codeine 300-30 mg tablet 1 tab PO Q6H PRN (Reason: pain) Qty: 15 0RF Follow Up/Referrals: Provider,Not a Local [Primary Care Provider] - Stand Alone Forms: Assmb[employer] Info Instructions
[2024-11-09 22:11] LABS: Amphetamine Screen Urine Negative (Negative); Barbiturate Screen Urine Negative (Negative); Benzodiazepines Screen Urine Negative (Negative); Buprenorphine Screen Urine Negative (Negative); Cannabinoid Screen Urine Negative (Negative); Cocaine Screen Urine Negative (Negative); Methadone Screen Urine Negative (Negative); Methamphetamines Screen Urine Negative (Negative); Opiate Screen Urine Negative (Negative); Oxycodone Screen Urine Negative (Negative); Phencyclidine Screen Urine Negative (Negative); Tricyclic Antidepressant Urine Negative (Negative)
== END 2024-11-09 22:15 | disposition home or self-care (01) ==
PROVIDERS: Emergency Provider Family Medicine
DX: R07.9 Chest pain, unspecified (principal); E87.6 Hypokalemia
CPT/HCPCS: 36415; 71046; 80048; 80076; 80306; 84484; 85025; 85379; 85610; 85730; 96374; 99284; A9270; J2060; J7030